=== PATIENT | male | born 1935 | race Caucasian/White ===

== ENCOUNTER 2016-11-24 23:52 | Emergency (ER) | payer MEDICARE, OTHER ==
[2016-11-25 01:00] LABS: BASOPHIL 0.3 % (0-2); HCT 36.6 % (42.0-52.0); LYMPHOCYTE 13.9 % (15-48); MCH 36.7 pg (25.0-31.0); MCHC 35.5 g/dL (32.0-36.0); MCV 103.4 fL (78.0-100.0); MONOCYTE 9.4 % (0-12); MPV 9.3 fL (6.0-9.5); NEUTROPHIL 73.4 % (41-80); PLT 221 K/uL (150-400); RBC 3.54 M/uL (4.70-6.00); RDW 12.1 % (11.5-14.0); WBC 6.7 K/uL (4.0-10.5)
[2016-11-25 01:25] LABS: ALBUMIN 4.3 g/dL (3.4-4.8); BILIRUBIN - TOTAL 0.5 mg/dL (0.1-1.0); CREATININE 0.7 mg/dL (0.7-1.2); GLOBULIN (CALCULATION) 2.9 g/dL (2.2-4.2); POTASSIUM 3.2 mmol/L (3.5-5.1); TOTAL PROTEIN 7.2 g/dL (6.4-8.3)
[2016-11-25 02:11] LABS: BILIRUBIN NEGATIVE (NEGATIVE); BLOOD NEGATIVE Ery/uL (NEGATIVE); CLARITY CLEAR (CLEAR); COLOR YELLOW (YELLOW); GLUCOSE (U) 3+ mg/dL (NORMAL); KETONE (U) 1+ (SMALL) mg/dL (NEGATIVE); LEUKOCYTES NEGATIVE Leu/uL (NEGATIVE); NITRITE NEGATIVE (NEGATIVE); PROTEIN NEGATIVE (NEGATIVE); UROBILINOGEN 0.2 mg/dL (0.2-1.0)
[2016-11-25 03:11] LABS: CREATININE 0.6 mg/dL (0.7-1.2); POTASSIUM 4.5 mmol/L (3.5-5.1)
== END 2016-11-25 04:05 | disposition home or self-care (01) ==
LOC: FER 23:52
PROVIDERS: Emergency Medicine Emergency Medical Services
DX: E10.649 Type 1 diabetes mellitus with hypoglycemia without coma (principal); E86.0 Dehydration; I10 Essential (primary) hypertension; Z95.1 Presence of aortocoronary bypass graft; Z79.82 Long term (current) use of aspirin; Z79.899 Other long term (current) drug therapy
CPT/HCPCS: 36415; 71010; 80048; 80053; 81003; 85025; 93005

== ENCOUNTER 2022-01-17 16:14 | Emergency (ER) | payer MEDICARE, OTHER ==
[2022-01-17 17:23] LABS: BASOPHIL 0.6 % (0-2); EOSINOPHIL 1.9 % (0-7); HCT 34.3 % (42.0-52.0); HGB 12.1 g/dl (13.2-18.0); LYMPHOCYTE 6.4 % (15-48); MCH 39.7 pg (25.0-31.0); MCHC 35.3 g/dL (32.0-36.0); MCV 112.5 fL (78.0-100.0); MONOCYTE 10.4 % (0-12); MPV 9.5 fL (6.0-9.5); NEUTROPHIL 80.4 % (41-80); NRBC 0; PLT 273 K/uL (150-400); RBC 3.05 M/uL (4.70-6.00); RDW 13.8 % (11.5-14.0); WBC 6.2 K/uL (4.0-10.5)
[2022-01-17 17:37] LABS: BUN/CREAT RATIO (CALC) 21.7 RATIO; CREATININE 0.83 mg/dL (0.67-1.17); POTASSIUM 2.6 mmol/L (3.5-5.1)
[2022-01-17 18:49] LABS: BILIRUBIN NEGATIVE (NEGATIVE); BLOOD NEGATIVE Ery/uL (NEGATIVE); CLARITY CLEAR (CLEAR); COLOR YELLOW (YELLOW); GLUCOSE (U) NORMAL (NORMAL); LEUKOCYTES NEGATIVE Leu/uL (NEGATIVE); NITRITE NEGATIVE (NEGATIVE); PROTEIN NEGATIVE (NEGATIVE); UROBILINOGEN 0.2 mg/dL (0.2-1.0)
== END 2022-01-17 20:27 | disposition home or self-care (01) ==
LOC: FER 16:14
PROVIDERS: Emergency Medicine
DX: E10.649 Type 1 diabetes mellitus with hypoglycemia without coma (principal); E87.6 Hypokalemia; S00.01XA Abrasion of scalp, initial encounter; I48.91 Unspecified atrial fibrillation; I25.10 Atherosclerotic heart disease of native coronary artery without angina pectoris; Z79.4 Long term (current) use of insulin; Z79.01 Long term (current) use of anticoagulants
CPT/HCPCS: 36415; 70450; 72125; 80048; 81003; 84484; 85025; 93005; J3480

== ENCOUNTER 2022-04-23 16:59 | Emergency (ER) | payer MEDICARE, OTHER ==
[2022-04-23 17:58] LABS: BASOPHIL 0.4 % (0-2); EOSINOPHIL 1.1 % (0-7); HGB 12.9 g/dl (13.2-18.0); LYMPHOCYTE 6.4 % (15-48); MCH 41.1 pg (25.0-31.0); MCHC 34.9 g/dL (32.0-36.0); MCV 117.8 fL (78.0-100.0); MONOCYTE 8.6 % (0-12); MPV 9.3 fL (6.0-9.5); NEUTROPHIL 82.9 % (41-80); NRBC 0; PLT 271 K/uL (150-400); RBC 3.14 M/uL (4.70-6.00); RDW 14.8 % (11.5-14.0); WBC 7.2 K/uL (4.0-10.5)
[2022-04-23 17:59] LABS: BILIRUBIN NEGATIVE (NEGATIVE); BLOOD NEGATIVE Ery/uL (NEGATIVE); CLARITY CLEAR (CLEAR); COLOR YELLOW (YELLOW); GLUCOSE (U) NORMAL (NORMAL); LEUKOCYTES NEGATIVE Leu/uL (NEGATIVE); NITRITE NEGATIVE (NEGATIVE); PROTEIN NEGATIVE (NEGATIVE); SPECIFIC GRAVITY 1.015 (1.001-1.030); UROBILINOGEN 0.2 mg/dL (0.2-1.0); pH 7.5 (5.0-9.0)
[2022-04-23 18:11] LABS: INR 1.39 (0.9-1.2); PROTHROMBIN TIME 16.6 SECONDS (11.9-13.9); PTT 31.9 SECONDS (24.9-34.6)
[2022-04-23 18:18] LABS: ALBUMIN 2.5 g/dL (3.4-5.0); BILIRUBIN - TOTAL 0.8 mg/dL (0.2-1.0); BUN/CREAT RATIO (CALC) 23.8 RATIO; CREATININE 0.84 mg/dL (0.67-1.17); GLOBULIN (CALCULATION) 3.3 g/dL; POTASSIUM 2.7 mmol/L (3.5-5.1); TOTAL PROTEIN 5.8 g/dL (6.4-8.2)
== END 2022-04-23 22:12 | disposition home or self-care (01) ==
LOC: FER 16:59
PROVIDERS: Emergency Medicine
DX: S50.812A Abrasion of left forearm, initial encounter (principal); S50.811A Abrasion of right forearm, initial encounter; S80.812A Abrasion, left lower leg, initial encounter; I48.91 Unspecified atrial fibrillation; E87.6 Hypokalemia; R55 Syncope and collapse; I50.9 Heart failure, unspecified; I25.2 Old myocardial infarction; E11.9 Type 2 diabetes mellitus without complications; Z95.1 Presence of aortocoronary bypass graft; W19.XXXA Unspecified fall, initial encounter; Y93.89 Activity, other specified; Y92.009 Unspecified place in unspecified non-institutional (private) residence as the place of occurrence of the external cause
CPT/HCPCS: 36415; 71045; 80053; 81003; 83605; 83880; 84484; 85025; 85610; 85730; 93005

== ENCOUNTER 2022-05-07 12:28 | Emergency (ER) | payer MEDICARE, OTHER ==
[2022-05-07 13:38] LABS: BASOPHIL 0.6 % (0-2); EOSINOPHIL 2.8 % (0-7); HCT 31.5 % (42.0-52.0); HGB 10.6 g/dl (13.2-18.0); LYMPHOCYTE 8.1 % (15-48); MCH 40.8 pg (25.0-31.0); MCHC 33.7 g/dL (32.0-36.0); MCV 121.2 fL (78.0-100.0); MONOCYTE 13.6 % (0-12); MPV 9.6 fL (6.0-9.5); NEUTROPHIL 73.9 % (41-80); NRBC 0.4; PLT 394 K/uL (150-400); WBC 5.1 K/uL (4.0-10.5)
[2022-05-07 13:52] LABS: INR 1.6 (0.9-1.2); PROTHROMBIN TIME 18.5 SECONDS (11.9-13.9); PTT 40.5 SECONDS (24.9-34.6)
[2022-05-07 14:12] LABS: BUN/CREAT RATIO (CALC) 25.3 RATIO; CREATININE 0.95 mg/dL (0.67-1.17); POTASSIUM 4.1 mmol/L (3.5-5.1)
[2022-05-07 14:13] LABS: LACTIC ACID 1.6 mmol/L (0.4-1.9)
== END 2022-05-07 15:52 | disposition home or self-care (01) ==
LOC: FER 12:28
PROVIDERS: Emergency Medicine
DX: I87.2 Venous insufficiency (chronic) (peripheral) (principal); L03.116 Cellulitis of left lower limb; E11.622 Type 2 diabetes mellitus with other skin ulcer; L97.829 Non-pressure chronic ulcer of other part of left lower leg with unspecified severity; I25.2 Old myocardial infarction; Z79.4 Long term (current) use of insulin
CPT/HCPCS: 36415; 80048; 83605; 85025; 85610; 85730; 87040; 93971